=== PATIENT | female | born 1995 | race Two or more races ===

== ENCOUNTER 2022-11-23 15:48 | Emergency (ER) | payer OTHER ==
[~2022-11-23] VITALS: Ht 160 cm; Wt 79.4 kg
== END 2022-11-23 21:09 | disposition home or self-care (01) ==
LOC: ER 15:48
DX: K29.00 Acute gastritis without bleeding (principal); Z20.822 Contact with and (suspected) exposure to COVID-19

== ENCOUNTER 2023-09-24 12:30 | Emergency (ER) | payer OTHER ==
[~2023-09-24] VITALS: Ht 160 cm; Wt 70.3 kg
[2023-09-24 14:24] LABS: HEMATOCRIT 41.6 % (36.0-45.00); HEMOGLOBIN 14.3 g/dL (12.0-15.00); MEAN CELL VOLUME 88.1 fL (80.00-100.00); MEAN CORPUSCULAR HEMOGLOBIN 30.3 pg (27.00-32.0); MEAN CORPUSCULAR HGB CONC 34.4 g/dl (32.0-36.0); PLATELET COUNT 270 K/uL (150-450); RED BLOOD COUNT 4.72 M/uL (4.00-6.00)
== END 2023-09-24 15:14 | disposition home or self-care (01) ==
LOC: ER 12:31
DX: J10.1 Influenza due to other identified influenza virus with other respiratory manifestations (principal); Z20.822 Contact with and (suspected) exposure to COVID-19